=== PATIENT | female | born 1985 | race African-American/Black ===

== ENCOUNTER 2020-05-26 06:12 | Emergency (ER) | payer OTHER, SELFPAY ==
--- NOTE | ~2020-05-26 | XR_ITS ---
EXAMINATION: XR chest 1V portable DATE: 05/26/2020 08:32 INDICATION: Chest pain. Cough. TECHNIQUE: A single frontal view of the chest was obtained. COMPARISON: None. FINDINGS: The chest demonstrates clear lungs without pneumonia, pleural effusion, or pneumothorax. Th e heart size is normal. IMPRESSION: 1. No acute cardiopulmonary disease. Reviewed, dictated and finalized at location A. [employer]
[2020-05-26 06:15] VITALS: BP 144/82; PULSE 97; RESP 20; TEMP 35.9; O2SAT 98
--- NOTE | 2020-05-26 07:06 | ECG_ITS ---
Measurements Intervals [place] Rate: 79 P: 51 CA: 139 QRS: 28 QRSD: 82 T: -1 QT: 352 QTc: 405 Interpretive Statements SINUS RHYTHM BORDERLINE ST-T WAVE ABNORMALITY- INFERIOR LEADS BORDERLINE ECG Electronically Signed On 05-26-2020 8:08:56 HEAD LINEMAN by Patrick Teran D.O.
--- NOTE | 2020-05-26 07:13 | ED.GENADULT ---
HPI - General Adult General Chief complaint: Anxiety Stated complaint: Anxiety,sob, body aches Time Seen by Provider: 05/26/20 07:00 Source: patient Mode of arrival: ambulatory Limitations: no limitations History of Present Illness HPI narrative: This is a 35 year old female who presents for evaluation of multiple complaints. She states this morning she woke up with a sore throat. She describes it as burning and painful swallowing. She states she drank some warm water and she went back to sleep. She woke up again with chest pain, shortness of breath and dizziness. She states she woke up in a full panic attack. She also reports cough, headache and body aches. She is unsure of fever. She denies sick contacts. She works as a clinical pharmacy technician. Related Data Allergies Allergy/AdvReac Type Severity Reaction Status Date / Time No Known Allergies Allergy Verified 05/26/20 06:17 Review of Systems Review of Systems: All systems reviewed & are unremarkable except as noted in HPI and below Constitutional: Constitutional: Reports chills and Denies fever(s) Cardiovascular: Cardiovascular: Reports chest pain Respiratory: Respiratory: Reports cough and Reports dyspnea Gastrointestinal: Gastrointestinal: Denies abdominal pain and Reports diarrhea Musculoskeletal: Musculoskeletal: Reports myalgias Neurologic: Reports headache(s) PMFSH Past Medical History Medical History (Updated 05/26/20 @ 09:15 by Nelda Chavez MD) Iron deficiency Uterine fibroid Social History Social History (Updated 05/26/20 @ 07:14 by Nelda Chavez MD) Smoking status: Never smoker Substance use: never Exam Narrative: Exam Narrative: GENERAL: Well-appearing, well-nourished, and in no acute distress. HEAD: Normocephalic, atraumatic EYES: PERRLA and EOMI, conjunctiva clear without discharge EARS: TM's clear bilaterally without erythema or dullness NOSE: Nares clear, no rhinorrhea or epistaxis THROAT:Mucous membranes moist, Oropharynx normal without erythema, exudate, peritonsillar swelling or fluctuance NECK: Supple, without lymphadenopathy or mass RESPIRATORY: No respiratory distress, Airway patent, Respirations non-labored, Clear to auscultation without rales, rhonchi or wheeze HEART: Regular rate and rhythm. No murmur heard. Normal peripheral pulses. ABDOMEN: Soft, nontender, nondistended, normal active bowel sounds. No masses. No rebound or guarding, No organomegaly. EXTREMITIES: No edema, normal strength with full range of motion. SKIN: Warm, dry, normal color without rash NEURO: Alert and oriented x3. CN 2-12 grossly intact. No focal deficits. PSYCH: Normal mood and affect. Course Reevaluation(s) Reevaluation #1: I Discussed with patient that labs show anemia and possible UTI. She is suppose to take iron supplementation but she is not taken on a regular basis. I stressed the importance of her iron pills. Date: 05/26/20 Time: 09:09 Vital Signs Vital signs: Vital Signs Temperature 96.7 F L 05/26/20 06:15 Pulse Rate 97 05/26/20 06:15 Respiratory Rate 20 05/26/20 06:15 Blood Pressure 144/82 H 05/26/20 06:15 Pulse Oximetry 98 05/26/20 06:15 Temperature 96.7 F L 05/26/20 06:15 Pulse Rate 94 05/26/20 09:32 Respiratory Rate 12 05/26/20 09:32 Blood Pressure 138/70 05/26/20 09:32 Pulse Oximetry 99 05/26/20 09:32 Medical Decision Making Vital Signs Vital Signs: Vital Signs Temperature 96.7 F L 05/26/20 06:15 Pulse Rate 97 05/26/20 06:15 Respiratory Rate 20 05/26/20 06:15 Blood Pressure 144/82 H 05/26/20 06:15 Pulse Oximetry 98 05/26/20 06:15 Temperature 96.7 F L 05/26/20 06:15 Pulse Rate 94 05/26/20 09:32 Respiratory Rate 12 05/26/20 09:32 Blood Pressure 138/70 05/26/20 09:32 Pulse Oximetry 99 05/26/20 09:32 Lab Data Lab results reviewed: Yes I reviewed the patient's lab results. Result diagrams: 05/26/20 07:38
[2020-05-26 07:51] LABS: Basophils Percent Auto 0.3 % (0.2-1.2); Eosinophils Absolute Auto 0.2 K/mm3 (0-0.3); Eosinophils Percent Auto 3.2 % (0-4.4); Hematocrit 27.5 % (37.0-47.0); Hemoglobin 7.7 g/dL (12.0-15.0); Immature Granulocyte Absolute 0.02 K/mm3 (0.00-0.031); Immature Granulocyte Percent A 0.3 % (0-0.5); Lymphocytes Absolute Auto 1.19 K/mm3 (0.9-3.2); Lymphocytes Percent Auto 15.9 % (18.3-44.2); Mean Corpuscular Volume 74.9 fl (80-100); Mean Platelet Volume 8.5 fl (7.4-10.4); Monocytes Absolute Auto 0.5 K/mm3 (0.1-0.6); Monocytes Percent Auto 7.2 % (2.6-8.5); Neutrophils Absolute Auto 5.5 K/mm3 (1.3-6.7); Neutrophils Percent Auto 73.1 % (45.5-73.1); Platelet Count Result 424 k/mm3 (150-375); Red Blood Count 3.67 M/mm3 (4.2-5.4); Red Cell Distribution Width 17.9 % (11.5-14.5); White Blood Count 7.5 K/mm3 (4.5-10.0)
[2020-05-26 08:00] LABS: Anisocytosis 1+ (NORMAL); Hypochromasia 2+ (NORMAL); Ovalocytes 1+ (NORMAL); Platelet Estimate Adequate (Adequate)
[2020-05-26 08:02] LABS: INR 0.9; Partial Thromboplastin Time 24.3 SECONDS (22.3-36.8); Prothrombin Time 12.7 Seconds (11.1-14.7)
[2020-05-26 08:05] LABS: D Dimer 0.44 ug/mL (<0.48)
[2020-05-26 08:06] LABS: Alanine Aminotransferase 12 U/L (4-35); Albumin Level 4.1 g/dL (3.5-5.1); Alkaline Phosphatase 89 U/L (38-126); Anion Gap 8 mmol/L (8-16); Aspartate Amino Transferase 23 U/L (14-36); Bilirubin,Total 0.2 mg/dL (0.2-1.3); Blood Urea Nitrogen 9 mg/dL (7-17); CRP 1.3 mg/dL (<1.0); Calcium 9.2 mg/dL (8.4-10.2); Carbon Dioxide 25 mmol/L (22-30); Chloride 105 mmol/L (98-107); Estimated CRCL calculation 117 ml/min; Estimated Glomerular Filt Rate > 60; Glucose 109 mg/dL (65-105); Sodium 138 mmol/L (137-145)
[2020-05-26 08:08] LABS: Add Urine Microscopic? YES; Appearance Urine Clear (Clear); Bilirubin Urine Negative (Negative); Blood Urine Negative (Negative); Color Urine Straw (Yellow); Glucose Urine UA Negative (Negative); Ketones Urine Negative (Negative); Leukocyte Esterase Ur 2+ LEU/UL (Negative); Mucus Urine Few /lpf; Nitrate Urine Negative (Negative); Protein Urine Negative (Negative); Specific Grav Ur 1.012 (1.001-1.035); Squamous Epithelial Cell Urine Moderate /hpf (Few); Urobilinogen Urine Negative mg/dL (<2.0); WBC Urine 21-30 /hpf
[2020-05-26 08:15] LABS: Troponin I < 0.012 ng/mL (0.000-0.034)
[2020-05-26 08:19] LABS: Monoscreen Negative (Negative); Negative Monotest Control Negative (Negative); Positive Monotest Control Positive (Positive)
[2020-05-26] MEDS: KETOROLAC 30 MG/ML VIAL (*BKC) (09:01)
[2020-05-26 09:32] VITALS: BP 138/70; PULSE 94; RESP 12; O2SAT 99
[2020-05-26 18:21] LABS: SARS-CoV-2 RNA PCR Negative
== END 2020-05-26 09:34 | disposition home or self-care (01) ==
PROVIDERS: Emergency Provider General Practice; PCP Family Medicine
DX: J02.9 Acute pharyngitis, unspecified (principal); N39.0 Urinary tract infection, site not specified; D50.9 Iron deficiency anemia, unspecified; Z20.828 Contact with and (suspected) exposure to other viral communicable diseases; R94.31 Abnormal electrocardiogram [ECG] [EKG]
CPT/HCPCS: 36415; 71045; 80053; 81001; 81025; 84484; 85025; 85380; 85610; 85730; 86140; 86308; 87077; 87081; 87086; 87088; 87804; 87880; 93005; 96374; 99284; C9803; J1885; U0003; U0005